=== PATIENT | female | born 1965 ===

== ENCOUNTER 2023-01-14 06:45 | Day surgery (SDC) | payer OTHER ==
[~2023-01-14 06:45] MED LIST: COZAAR25 MG PO; TYLENOL ARTHRI650 MG PO; VITAMIN D310 MCG/1 M PO
[2023-01-14] MEDS ORDERED: PERCOCET 5-3251 EACH PO (12:31)
== END 2023-01-14 18:35 | disposition home or self-care (01) ==
LOC: CIR.AMB 06:45
PROVIDERS: ATTEND Surgery
DX: D35.1 Benign neoplasm of parathyroid gland (principal); R59.0 Localized enlarged lymph nodes; E21.0 Primary hyperparathyroidism; Z20.822 Contact with and (suspected) exposure to COVID-19; Z88.6 Allergy status to analgesic agent